=== PATIENT | male | born 1960 | race Caucasian/White ===

== ENCOUNTER 2022-08-19 17:16 | Inpatient (IN) | payer OTHER ==
[~2022-08-19] VITALS: Ht 180.3 cm; Wt 79.8 kg
[2022-08-19] MEDS: IV NS 1000 ML 1,000 ML IV ONE (01:40)
--- NOTE | 2022-08-19 17:18 | NUR ---
RECEIVED PT FROM EMS AND PLACED PT ON ACCREDITATION COORDINATOR. PT COMPLANS OF N/V.PT HAS A HX OF ETOH ABUSE.
--- NOTE | 2022-08-19 17:19 | NUR ---
DICK MARTIN AT BEDSIDE FOR MSE
[2022-08-19] MEDS ORDERED: IV NORMAL SALINE 1000 ML BAG IV ONE (17:30)
[2022-08-19] MEDS ORDERED: PANTOPRAZOLE SODIUM 40 MG VIAL IV ONE (17:30)
[2022-08-19] MEDS ORDERED: ONDANSETRON 4 MG/2 ML VIAL IV ONE ×3 (17:30→23:30)
[2022-08-19] MEDS ORDERED: PANTOPRAZOLE SODIUM IV 80 MG in IV DEXTROSE 5% 100 ML IV ONE (17:30)
[2022-08-19] MEDS ORDERED: ONDANSETRON 4 MG/2 ML VIAL ONE ×4 (17:39→23:54)
[2022-08-19] MEDS ORDERED: PANTOPRAZOLE SODIUM 40 MG VIAL ONE (17:39)
[2022-08-19 18:00] LABS: HEMATOCRIT 47.5 % (36.7-47.1); MEAN CORPUSCULAR HEMOGLOBIN 29.8 uug (23.8-33.4); MEAN CORPUSCULAR VOLUME 89.3 fL (73.0-96.2); PLATELET COUNT (AUTO) 519 K/uL (152-348)
[2022-08-19] MEDS ORDERED: PROCHLORPERAZINE EDISYLATE 10 MG/2 ML VIAL ONE (18:11)
[2022-08-19] MEDS ORDERED: diphenhydrAMINE 50 MG/1 ML VIAL ONE (18:12)
[2022-08-19 18:13] LABS: CARBON DIOXIDE 33 mmol/L (21-32); CHLORIDE 89 mmol/L (98-107); CREATININE 1.3 mg/dL (0.6-1.3); GLUCOSE 146 mg/dL (74-106); POTASSIUM 2.9 mmol/L (3.5-5.1); UREA NITROGEN, BLOOD 13 mg/dL (7-18)
[2022-08-19] MEDS ORDERED: diphenhydrAMINE 50 MG/1 ML VIAL IV ONE (18:15)
[2022-08-19] MEDS ORDERED: PROCHLORPERAZINE EDISYLATE 10 MG/2 ML VIAL IV ONE (18:15)
[2022-08-19 18:21] LABS: ALANINE AMINOTRANSFERASE 14 U/L (16-63); ALKALINE PHOSPHATASE 127 U/L (50-136); ASPARTATE AMINOTRANSFERASE 10 U/L (15-37); BILIRUBIN,DIRECT 0.2 mg/dL (0.0-0.2); BILIRUBIN,TOTAL 0.7 mg/dL (0.2-1.0); LIPASE 59 U/L (73-393); TOTAL PROTEIN, SERUM 8.1 g/dL (6.4-8.2)
[2022-08-19] MEDS ORDERED: POTASSIUM CHLORIDE 100 ML ONE (18:44)
[2022-08-19] MEDS ORDERED: OXYCODONE/APAP 5-325 MG TABLET PO ONE (18:45)
[2022-08-19] MEDS: POTASSIUM CHLORIDE 50 ML IV SCH (18:58)
--- NOTE | 2022-08-19 18:59 | NUR ---
SBAR TO JOHN CAMPBELL
[2022-08-19] MEDS ORDERED: THIAMINE HCL 100 MG TABLET PO ONE (19:00)
[2022-08-19] MEDS ORDERED: THIAMINE HCL 200 MG/2 ML VIAL IV ONE (19:15)
[2022-08-19] MEDS ORDERED: LORAZEPAM 2 MG/1 ML VIAL IV ONE ×2 (19:15→23:30)
[2022-08-19] MEDS ORDERED: VANCOMYCIN IV 1,000 MG in IV DEXTROSE 5% 250 ML IV ONE (19:15)
[2022-08-19] MEDS ORDERED: PIPERACILLIN SODIUM/TAZOBACTAM 3.375 G in IV DEXTROSE 5% 50 ML IV ONE (19:15)
[2022-08-19] MEDS ORDERED: THIAMINE HCL 200 MG/2 ML VIAL ONE (19:25)
[2022-08-19] MEDS ORDERED: LORAZEPAM 2 MG/1 ML VIAL ONE ×3 (19:26→23:55)
--- NOTE | 2022-08-19 20:05 | NUR ---
IV to right hand no longer working. Attempting to restart
--- NOTE | 2022-08-19 22:04 | NUR ---
Unable to restart IV placement with multiple attempts by myself and recreation therapy aides teacher Walt. Dr. Hodge aware
--- NOTE | 2022-08-19 22:05 | NUR ---
Urine sample sent to lab
--- NOTE | 2022-08-19 22:15 | NUR ---
Patient ambulated to the bathroom independently. Tolerated well. Patient stated he had a large watery stool
[2022-08-19 22:20] LABS: *BILIRUBIN,URIN NEGATIVE (NEGATIVE); *BLOOD, URINE NEGATIVE (NEGATIVE); *CLARITY,URINE CLEAR (CLEAR); *COLOR,URINE YELLOW (YELLOW); *KETONES,URINE TRACE (NEGATIVE); *UROBILINOGEN,URINE 0.2 E.U./dl (NORMAL); LEUKOCYTE ESTERASE ,URINE NEGATIVE (NEGATIVE); NITRITE, URINE NEGATIVE (NEGATIVE); PH,URINE >=9.0 (5.0-8.0); UGLUCOSE NEGATIVE (NEGATIVE)
--- NOTE | 2022-08-19 22:30 | NUR ---
Called [facility] to page Ihsan Lindo NP.
--- NOTE | 2022-08-19 22:39 | NUR ---
Patient tolerating fluids, drank 3 apple juices. Patient denies N/V
--- NOTE | 2022-08-19 22:43 | NUR ---
Dr. Hodge on panel call with Ihsan Lindo NP.
[2022-08-19 22:51] LABS: *AMPHETAMINE, URINE NEGATIVE (NEGATIVE); *COCCAINE, URINE NEGATIVE (NEGATIVE); *PHENCYCLIDINE SCREEN,URINE NEGATIVE (NEGATIVE)
[2022-08-19] MEDS ORDERED: QUETIAPINE FUMARATE 25 MG TABLET PO ONE (23:30)
[2022-08-19] MEDS ORDERED: IV NS 1000 ML 1,000 ML IV ONE (23:30)
[2022-08-19] MEDS ORDERED: HYDROMORPHONE 1 MG/1 ML DISP.SYRIN IV ONE (23:30)
--- NOTE | 2022-08-19 23:30 | NUR ---
Patient signed consent for femoral central line
[2022-08-19 23:33] LABS: *CANNABINOID, URINE POSITIVE (NEGATIVE)
--- NOTE | 2022-08-19 23:40 | NUR ---
Dr. Hodge placed a femoral line to right groin
--- NOTE | 2022-08-19 23:51 | NUR ---
Report given to Karen CAMPBELL
[2022-08-19] MEDS ORDERED: HYDROMORPHONE 1 MG/1 ML DISP.SYRIN ONE (23:54)
[2022-08-19] MEDS ORDERED: QUETIAPINE FUMARATE 25 MG TABLET ONE (23:54)
[2022-08-19] MEDS ORDERED: PIPERACILLIN/TAZOBACTAM/D5W 50 ML IV ONE (23:56)
[2022-08-20 00:44] LABS: BACTERIA,URINE FEW /HPF (NONE SEEN); SQUAMOUS EPITHELIAL CELL,UR FEW /HPF (NONE SEEN)
[2022-08-20] MEDS ORDERED: VANCOMYCIN IV 200 ML ONE (00:54)
[2022-08-20] MEDS ORDERED: REMEDY ESSENTIAL ZINC PASTE 113 GM TP PRN (01:00)
[2022-08-20] MEDS ORDERED: MAGNESIUM HYDROXIDE 30 ML LIQUID UDC PO PRN (01:00)
[2022-08-20] MEDS: IV NS 1000 ML 1,000 ML IV ONE (01:40)
[2022-08-20] MEDS: POTASSIUM CHLORIDE 50 ML IV SCH (02:10)
--- NOTE | 2022-08-20 03:05 | NUR ---
JOHN PAUL PARRA A/A/O XS 4, NO DISTRESS NOTED
--- NOTE | 2022-08-20 03:18 | NUR ---
Patient taken to third floor room 320 via gurney with personal belongings. Patient in stable condition, no signs of distress. Karen RN aware of patients arrival.
[2022-08-20 03:19] VITALS: BP 105/45
[2022-08-20] MEDS: IV NS 1000 ML 1,000 ML IV PRN ×2 (05:02→22:15)
[2022-08-20] MEDS ORDERED: PIPERACILLIN SODIUM/TAZOBACTAM 3.375 G in IV DEXTROSE 5% 50 ML IV ONE (06:00)
--- NOTE | 2022-08-20 07:25 | NUR ---
REPORT GIVEN TO SHANNAN HERNANDEZ
[2022-08-20] MEDS ORDERED: PIPERACILLIN SODIUM/TAZOBACTAM 3.375 G in IV DEXTROSE 5% 50 ML IV SCH (08:00)
[2022-08-20 08:09] LABS: ABG BASE EXCESS 11.3 mmol/L; ABG HCO3 30.9 mmol/L; ABG PCO2 27.3 mmHg (35.0-45.0); ABG PH 7.672 (7.350-7.450); ABG PO2 54.5 mmHg (75.0-100.0); ABG SITE LEFT RADIAL; ABG TOTAL HEMOGLOBIN 16.5 G/dL (13.5-18.0); COHb 2.1 % (0.5-1.5); MetHb 0.3 % (0.0-1.5); O2Hb 91.2 % (94.0-97.0); VENT MODE Room Air
[2022-08-20] MEDS: THIAMINE HCL 100 MG TABLET PO SCH (09:18)
[2022-08-20] MEDS: FOLIC ACID 1 MG TABLET PO SCH (09:18)
[2022-08-20] MEDS: PANTOPRAZOLE SODIUM 40 MG VIAL IV SCH (09:27)
--- NOTE | 2022-08-20 09:48 | NUR ---
Patient is in Bed awake. He is comfortable with no discomfort or distress noted. Meds taken whole. Alert and oriented x3, made eye comfortable and can verbalize his needs. Breathing normal on room air. Denies pain when asked. Respiration even, unlabored. Sn, will continue to monitor.
[2022-08-20] MEDS ORDERED: VANCOMYCIN IV 1,000 MG in IV DEXTROSE 5% 250 ML IV SCH (10:00)
[2022-08-20] MEDS: ACETAMINOPHEN 325 MG TABLET PO PRN (10:37)
[2022-08-20] MEDS: ONDANSETRON 4 MG/2 ML VIAL IV PRN ×3 (10:37→22:15)
[2022-08-20 12:00] VITALS: BP 106/54
[2022-08-20] MEDS: LORAZEPAM 2 MG/1 ML VIAL IV PRN ×2 (12:45→22:39)
[2022-08-20 14:33] LABS: BILIRUBIN,TOTAL 1.1 mg/dL (0.2-1.0); CREATININE 1.1 mg/dL (0.6-1.3); MAGNESIUM 1.9 mg/dL (1.8-2.4); PHOSPHOROUS 2.7 mg/dL (2.5-4.9); POTASSIUM 3.3 mmol/L (3.5-5.1); TOTAL PROTEIN, SERUM 5.9 g/dL (6.4-8.2)
[2022-08-20 14:38] LABS: HEMATOCRIT 37.6 % (36.7-47.1); MEAN CORPUSCULAR HEMOGLOBIN 29.8 uug (23.8-33.4); MEAN CORPUSCULAR VOLUME 91.3 fL (73.0-96.2); PLATELET COUNT (AUTO) 308 K/uL (152-348)
--- NOTE | 2022-08-20 14:49 | NUR ---
Urine sample taken down to lab. Will continue to monitor patient
[2022-08-20 14:55] LABS: *BILIRUBIN,URIN NEGATIVE (NEGATIVE); *BLOOD, URINE NEGATIVE (NEGATIVE); *CLARITY,URINE CLEAR (CLEAR); *COLOR,URINE YELLOW (YELLOW); *KETONES,URINE NEGATIVE (NEGATIVE); *UROBILINOGEN,URINE 0.2 E.U./dl (NORMAL); LEUKOCYTE ESTERASE ,URINE NEGATIVE (NEGATIVE); NITRITE, URINE NEGATIVE (NEGATIVE); PH,URINE 7.5 (5.0-8.0); UGLUCOSE NEGATIVE (NEGATIVE)
[2022-08-20 15:14] LABS: *CREATININE,URINE 31.1 mg/dL (30-125)
[2022-08-20] MEDS: PIPERACILLIN SODIUM/TAZOBACTAM 3.375 G in IV DEXTROSE 5% 100 ML IV SCH (15:38)
[2022-08-20 16:00] VITALS: BP 109/58
[2022-08-20 20:00] VITALS: BP 116/56
[2022-08-21] MEDS: PIPERACILLIN SODIUM/TAZOBACTAM 3.375 G in IV DEXTROSE 5% 100 ML IV SCH ×3 (00:58→17:12)
[2022-08-21] MEDS: VANCOMYCIN IV 1,000 MG in IV DEXTROSE 5% 250 ML IV SCH ×2 (01:40→15:32)
[2022-08-21] MEDS: ONDANSETRON 4 MG/2 ML VIAL IV PRN ×3 (06:58→20:02)
[2022-08-21 07:02] LABS: HEMATOCRIT 40.5 % (36.7-47.1); MEAN CORPUSCULAR HEMOGLOBIN 29.9 uug (23.8-33.4); MEAN CORPUSCULAR VOLUME 91.2 fL (73.0-96.2); PLATELET COUNT (AUTO) 289 K/uL (152-348)
[2022-08-21 07:29] LABS: CREATININE 1.1 mg/dL (0.6-1.3)
[2022-08-21 07:43] LABS: BILIRUBIN,DIRECT 0.3 mg/dL (0.0-0.2); MAGNESIUM 1.8 mg/dL (1.8-2.4); TOTAL PROTEIN, SERUM 6.1 g/dL (6.4-8.2)
--- NOTE | 2022-08-21 08:13 | NUR ---
Patient is AAOX4, compliant with meds. No sign of respiratory distress observed. IV site is patent, dry, no redness or rashes observed. Will continue to monitor patient for safety.
[2022-08-21] MEDS: PANTOPRAZOLE SODIUM 40 MG VIAL IV SCH (08:16)
[2022-08-21] MEDS: THIAMINE HCL 100 MG TABLET PO SCH (08:17)
[2022-08-21] MEDS: FOLIC ACID 1 MG TABLET PO SCH (08:17)
[2022-08-21 09:31] LABS: HEMATOCRIT 39.6 % (36.7-47.1); MEAN CORPUSCULAR HEMOGLOBIN 29.9 uug (23.8-33.4); MEAN CORPUSCULAR VOLUME 91.3 fL (73.0-96.2); PLATELET COUNT (AUTO) 316 K/uL (152-348)
[2022-08-21 10:05] LABS: MAGNESIUM 1.8 mg/dL (1.8-2.4); PHOSPHOROUS 2.9 mg/dL (2.5-4.9)
--- NOTE | 2022-08-21 11:40 | NUR ---
STILL C/O ON AND OFF FEELING OF NAUSEA TEMPORARY RELIEVED WITH ZOFRAN
[2022-08-21 12:00] VITALS: BP 119/85
[2022-08-21] MEDS: GLUCERNA SHAKE 237 ML CAN PO SCH ×2 (12:16→17:00)
[2022-08-21] MEDS: POTASSIUM CHLORIDE 50 ML IV SCH ×6 (12:55→18:05)
[2022-08-21] MEDS: CHLORDIAZEPOXIDE HCL 25 MG CAPSULE PO SCH (18:04)
[2022-08-21 20:15] VITALS: BP 125/64
[2022-08-22] MEDS: PIPERACILLIN SODIUM/TAZOBACTAM 3.375 G in IV DEXTROSE 5% 100 ML IV SCH ×3 (00:07→15:45)
[2022-08-22] MEDS: IV NS 1000 ML 1,000 ML IV PRN ×2 (00:12→16:00)
[2022-08-22 00:32] VITALS: BP 127/69
[2022-08-22] MEDS: ACETAMINOPHEN 325 MG TABLET PO PRN (00:56)
[2022-08-22] MEDS: ONDANSETRON 4 MG/2 ML VIAL IV PRN ×4 (02:05→20:04)
[2022-08-22] MEDS ORDERED: VANCOMYCIN IV 1,000 MG in IV DEXTROSE 5% 250 ML IV SCH (04:00)
[2022-08-22 04:09] VITALS: BP 121/64
[2022-08-22 07:04] LABS: HEMATOCRIT 40.1 % (36.7-47.1); MEAN CORPUSCULAR HEMOGLOBIN 30.5 uug (23.8-33.4); PLATELET COUNT (AUTO) 336 K/uL (152-348)
[2022-08-22 07:28] LABS: MAGNESIUM 1.7 mg/dL (1.8-2.4); PHOSPHOROUS 3.6 mg/dL (2.5-4.9); POTASSIUM 3.3 mmol/L (3.5-5.1)
[2022-08-22] MEDS: GLUCERNA SHAKE 237 ML CAN PO SCH ×3 (08:30→17:00)
[2022-08-22] MEDS: PANTOPRAZOLE SODIUM 40 MG VIAL IV SCH (08:32)
[2022-08-22] MEDS: CHLORDIAZEPOXIDE HCL 25 MG CAPSULE PO SCH ×3 (08:33→17:27)
[2022-08-22] MEDS: FOLIC ACID 1 MG TABLET PO SCH (08:33)
[2022-08-22] MEDS: THIAMINE HCL 100 MG TABLET PO SCH (08:33)
--- NOTE | 2022-08-22 08:39 | NUR ---
AWAKE ALERT AND ORIENTED, DENIES OF PAIN BUT STATES HAS NAUSEA, MEDICATED WITH ZOFRAN PRN, NEEDS ATTENDED AND SAFETY MEASURES MAINTAINED, ivf VIA RIGHT FEMORAL CENTRAL LINE
[2022-08-22] MEDS: POTASSIUM CHLORIDE 50 ML IV SCH ×2 (09:57→11:26)
[2022-08-22] MEDS ORDERED: MAGNESIUM OXIDE 400 MG TABLET PO ONE (10:00)
--- NOTE | 2022-08-22 10:07 | NUR ---
GUILLERMINA consult requested for a 62 year old male patient for alcohol abuse. Patient is alert and oriented X4 and presents with depressed mood and congruent affect. Patient states his primary contact is his sister, Abner Varghese ([phone]) and she lives close by. Patient states he is currently living in a condo in [place] and is not driving. Patient states he is not working. Patient states he has a history of alcohol abuse and GUILLERMINA provided the patient with resources for [facility] [address] [facility] [address] ([phone]), [facility] [address] [facility] [address] ([phone]), and [address] [address] ([phone]). Patient appears unmotivated for treatment. Patient states he has a history of depression and anxiety and is taking medication. Patient denies suicidal or homicidal ideation. GUILLERMINA provided the patient with the mental health resource for [facility] ([phone]) [address] [facility] [address]. Patient states his plan for discharge is to take transportation covered by [employer] and go home to his condo in [place]. GUILLERMINA informed pillowcase maker, Buster.
[2022-08-22 11:54] VITALS: BP 132/72
[2022-08-22 14:47] VITALS: BP 132/81
[2022-08-22 17:06] LABS: A/G RATIO 0.8 (0.7-1.7); ALBUMIN 2.5 g/dL (2.9-4.4); ALPHA-1-GLOBULIN 0.4 g/dL (0.0-0.4); ALPHA-2-GLOBULIN 0.9 g/dL (0.4-1.0); BETA GLOBULIN 0.9 g/dL (0.7-1.3); GAMMA GLOBULIN 1.1 g/dL (0.4-1.8); GLOBULIN, TOTAL 3.2 g/dL (2.2-3.9); M-SPIKE Not Observed g/dL (Not Observed)
--- NOTE | 2022-08-22 18:01 | NUR ---
still has on and off nausea- medicated as ordered rich matute, no nausea, had one liquid stool large amount, all needs attended and met, call light within reach
--- NOTE | 2022-08-22 20:00 | NUR ---
patient in bed [id number] , patient denies pain nor discomfort .patient uses the urinal at b/s voids . no respiratory distress noted watching tv.
[2022-08-22 20:50] VITALS: BP 107/62
--- NOTE | 2022-08-22 22:30 | NUR ---
patient in bed awake watching tv . urinal emptied and given back to patient .maintenance ivf normal saline in progress and infusing well via the right femoral central line site cdi .
--- NOTE | 2022-08-22 22:30 | NUR ---
patient had a bm in the diaper liquid moderate about patient wipe himself then asked for help acute care assistant changed diaper.
[2022-08-22] MEDS: LORAZEPAM 2 MG/1 ML VIAL IV PRN (23:44)
[2022-08-23 00:13] VITALS: BP 123/77
[2022-08-23] MEDS: PIPERACILLIN SODIUM/TAZOBACTAM 3.375 G in IV DEXTROSE 5% 100 ML IV SCH ×2 (00:22→08:11)
--- NOTE | 2022-08-23 02:06 | NUR ---
prn Zofran given q request see emar documentation .
[2022-08-23] MEDS: ONDANSETRON 4 MG/2 ML VIAL IV PRN ×2 (02:09→10:00)
[2022-08-23] MEDS: IV NS 1000 ML 1,000 ML IV PRN (04:01)
[2022-08-23 04:18] VITALS: BP 106/57
[2022-08-23] MEDS ORDERED: PANTOPRAZOLE SODIUM 40 MG TABLET.DR PO SCH (07:00)
[2022-08-23 07:54] LABS: HEMATOCRIT 38.6 % (36.7-47.1); MEAN CORPUSCULAR HEMOGLOBIN 30.8 uug (23.8-33.4); MEAN CORPUSCULAR VOLUME 92.1 fL (73.0-96.2); PLATELET COUNT (AUTO) 339 K/uL (152-348)
[2022-08-23] MEDS: FOLIC ACID 1 MG TABLET PO SCH (08:12)
[2022-08-23] MEDS: THIAMINE HCL 100 MG TABLET PO SCH (08:12)
[2022-08-23] MEDS: GLUCERNA SHAKE 237 ML CAN PO SCH ×2 (08:12→12:00)
[2022-08-23] MEDS: CHLORDIAZEPOXIDE HCL 25 MG CAPSULE PO SCH (08:12)
[2022-08-23 08:48] LABS: CREATININE 0.9 mg/dL (0.6-1.3); MAGNESIUM 1.8 mg/dL (1.8-2.4); PHOSPHOROUS 3.5 mg/dL (2.5-4.9); POTASSIUM 3.2 mmol/L (3.5-5.1)
[2022-08-23] MEDS ORDERED: POTASSIUM CHLORIDE 20 MEQ TAB.PRT.SR PO ONE (10:00)
[2022-08-23] MEDS ORDERED: THIA100T13 PO (11:54)
[2022-08-23] MEDS ORDERED: FOLI1TAB94 PO (11:54)
[2022-08-23] MEDS ORDERED: CHLO25CA22 PO (11:54)
[2022-08-23] MEDS ORDERED: AMOX250C PO (11:54)
[2022-08-23] MEDS ORDERED: PANT40TA49 PO (11:54)
--- NOTE | 2022-08-23 12:00 | NUR ---
right femoral central line d/cd- cath intact including tip, site clean - no redness or swelling noted, pressure dsg applied- no bleeding noted
--- NOTE | 2022-08-23 12:52 | NUR ---
dc orders received noted and carried out,dc instruction and education given to the pt.pt belonging return to the pt ,pt left the facility via private car in stable condition,dc femoral line per md orders
== END 2022-08-23 12:50 | disposition home or self-care (01) | DRG 720 ==
LOC: ER 17:16 → TELE3 08-20 02:21
PROVIDERS: ADMIT Student in an Organized Health Care Education/Training Program; ATTEND Nurse Practitioner Acute Care
DX: A41.9 Sepsis, unspecified organism (principal); J69.0 Pneumonitis due to inhalation of food and vomit; E87.20 Acidosis, unspecified; K20.91 Esophagitis, unspecified with bleeding; N17.9 Acute kidney failure, unspecified; I31.39 Other pericardial effusion (noninflammatory); E44.0 Moderate protein-calorie malnutrition; E87.4 Mixed disorder of acid-base balance; D62 Acute posthemorrhagic anemia; K92.0 Hematemesis; E86.1 Hypovolemia; E87.6 Hypokalemia; I25.2 Old myocardial infarction; Z85.01 Personal history of malignant neoplasm of esophagus; Z20.822 Contact with and (suspected) exposure to COVID-19; K76.0 Fatty (change of) liver, not elsewhere classified; F10.139 Alcohol abuse with withdrawal, unspecified; Y90.1 Blood alcohol level of 20-39 mg/100 ml; Z68.24 Body mass index [BMI] 24.0-24.9, adult; K76.9 Liver disease, unspecified; K57.30 Diverticulosis of large intestine without perforation or abscess without bleeding; N20.0 Calculus of kidney
CPT/HCPCS: 36415; 36556; 36600; 71045; 83605; 83690; 83735; 83970; 84100; 84155; 84156; 84165; 84300; 84484; 85025; 85730; 87040; 93005; A4663; C9113; G0378; G0480; J0780; J1170; J1200; J2060; J2405; J2543; J3370; J3411; J3480; J7040; J7050